=== PATIENT | female | born 1980 | race Caucasian/White ===

== ENCOUNTER 2017-02-10 15:19 | Inpatient (IN) | payer OTHER ==
[~2017-02-10] VITALS: Ht 170.2 cm; Wt 55.3 kg
--- NOTE | 2017-02-10 16:20 | NUR ---
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 Night nurse to follow up. Pt to be on Room Restriction when she comes back on the unit and to be monitored closely. Addendum: 02/10/17 at 1940 by CLAUDIO JAIN RN CORRECTION OF TIME, TIME OF OCCURRENCE WAS 1819.
[2017-02-10] MEDS ORDERED: diphenhydrAMINE 50 MG CAPSULE PO PRN (16:30)
[2017-02-10] MEDS ORDERED: ACETAMINOPHEN 325 MG TABLET PO PRN (16:30)
[2017-02-10] MEDS ORDERED: MIRALAX 17 GM POWD.PACK PO PRN (16:30)
[2017-02-10] MEDS ORDERED: ONDANSETRON ODT 4 MG TAB.RAPDIS SL PRN (16:30)
[2017-02-10] MEDS ORDERED: ONDANSETRON 4 MG/2 ML VIAL IM PRN (16:30)
[2017-02-10] MEDS ORDERED: MAG HYDROX/AL HYDROX/SIMETH 30 ML LIQUID UDC PO PRN (16:30)
[2017-02-10] MEDS ORDERED: THIAMINE HCL 200 MG/2 ML VIAL IM ONE (16:30)
[2017-02-10] MEDS ORDERED: IBUPROFEN 400 MG TABLET PO PRN (16:30)
[2017-02-10] MEDS ORDERED: LORAZEPAM 2 MG/1 ML VIAL IM PRN (16:30)
[2017-02-10] MEDS ORDERED: CLONIDINE HCL 0.1 MG TABLET PO PRN (16:30)
[2017-02-10] MEDS ORDERED: LOPERAMIDE HCL 2 MG CAPSULE PO PRN ×2 (16:30)
--- NOTE | 2017-02-10 16:30 | NUR ---
INTAKE ASSESSMENT Client is sitting in chair, she presents with anxious mood, she is running her hands up and down on her arms, hand-wringing she states "I am very anxious, I need some alcohol." VS T97.8, P 92, RR 16, BP 136/86, spO2 @ 95% on RA, pain 0/10. Client appears intoxicated and is a poor historian, she stated she is a binge drinker and that she has been sober for 3 and a half years, she also said " The first time I had a drink was two and a half years ago." Client is inconsistent with substance use. Her closest friend stated "Last time she had a drink was 2 hrs ago, she had three shots of vodka at the restaurant." Client reports NKA, NKFA and regular diet. Client reports PMH of anxiety, she denies any withdrawal-induced seizure. She does not have a PCP, Psychiatrist Coni Gifford. Dr. Miller was contacted by RN on client current state, and ask if client should be transfer to ER until stable. Per order, client was transported to 3rd floor via . and continue to monitor. Client was educated on VS, blood drawn, urine drug screen and narcotic medication protocol.
[2017-02-10 16:48] LABS: *URINE HCG, QUAL NEGATIVE (NEGATIVE)
[2017-02-10 16:56] LABS: *AMPHETAMINE, URINE NEGATIVE (NEGATIVE); *BARBITURATE, URINE NEGATIVE (NEGATIVE); *CANNABINOID, URINE NEGATIVE (NEGATIVE); *COCCAINE, URINE NEGATIVE (NEGATIVE); *OPIATE, URINE NEGATIVE (NEGATIVE); *PHENCYCLIDINE SCREEN,URINE NEGATIVE (NEGATIVE)
[2017-02-10] MEDS ORDERED: IBUP-1610 PO (16:58)
[2017-02-10] MEDS ORDERED: ALPR0.255 PO (16:58)
[2017-02-10] MEDS ORDERED: TEMA7.5C PO (16:58)
[2017-02-10] MEDS ORDERED: VALE500C PO (16:58)
--- NOTE | 2017-02-10 17:00 | NUR ---
Client admitted via to room # 301-A, after [facility] by staff INDUSTRIAL ENGINEERING ANALYST. Client's skin is clean, warm and intact. She lives alone in an apartment in [place]. She is a Travel special education paraeducator. Client states ""I have a lot to live for." as the reason for her admission to [facility], she reports taking Xanax 0.25mg twice as needed for the past 3 weeks, last time she used this am, but she can not recall amount. She reports not having any alcoholic drink for the past two weeks, but smell of alcohol can be detected. Client provided urine, she is positive for Benzodiazepine. She reports LMP three weeks ago. Client is in bed, side rails x 2 up/padded. Call light within reach. She states I just want to relax for a little bit before you keep asking questions. Client got up with an steady gait and went to use the bathroom, she came back to bed, closed her eyes and did not answer any more questions.
[2017-02-10 18:04] LABS: BASOPHILS % (AUTO) 0.6 % (0.0-2.0); EOSINOPHILS # (AUTO) 0.2 K/uL (0.0-0.7); EOSINOPHILS % (AUTO) 3.2 % (0.0-7.0); HEMATOCRIT 41.2 % (37-47); HEMOGLOBIN 13.5 G/DL (12.0-16.0); LYMPHOCYTES # (AUTO) 1.6 K/UL (0.8-4.8); MEAN CORPUSCULAR HEMOGLOBIN 28.7 UUG (27.0-31.0); MEAN CORPUSCULAR HGB CONC 33 g/dL (32.0-37.0); MEAN CORPUSCULAR VOLUME 87.5 FL (81.0-99.0); MONOCYTES # (AUTO) 0.3 K/UL (0.1-1.30); NEUTROPHILS # (AUTO) 2.7 K/UL (1.8-8.9); NEUTROPHILS % (AUTO) 56.2 % (38.5-71.5); PLATELET COUNT (AUTO) 331 K/UL (150-450); RED BLOOD CELL COUNT(AUTO) 4.71 MIL/UL (4.2-5.4); WHITE BLOOD COUNT (AUTO) 4.8 K/UL (4.0-11.2)
--- NOTE | 2017-02-10 18:10 | NUR ---
Client is on B1 injection, stating "You have to give me Ativan first, if you want me to take any medication. ANDRE 4. Charge nurse notified .
[2017-02-10 18:14] LABS: BILIRUBIN,TOTAL 0.3 mg/dL (0.2-1.0); CREATININE 0.8 mg/dL (0.6-1.3); MAGNESIUM 1.9 mg/dL (1.8-2.4); POTASSIUM 3.8 mmol/L (3.5-5.1); TOTAL PROTEIN, SERUM 7.5 g/dL (6.4-8.2)
[2017-02-10 21:00] VITALS: BP 126/77
[2017-02-10] MEDS ORDERED: LORAZEPAM 1 MG TABLET PO PRN ×2 (21:00)
[2017-02-10] MEDS ORDERED: NICOTINE POLACRILEX 4 MG GUM-PK OF TEN BC PRN (21:00)
[2017-02-10] MEDS: NICOTINE 14 MG/24HR PATCH TD SCH (21:00)
--- NOTE | 2017-02-10 21:45 | NUR ---
ADMISSION Pt is a 37 yo female who arrived on the [facility] unit via wheelchair at 2044 on 02/10/17. Pt was transferred from the [facility] ED to the [facility] for medically supervised detox. She is A&O x4 and ambulatory. Her gait is steady when she arrived on the unit. Pt appears mildly intoxicated and answers questions appropriately. 1:[address] for safety and pt is on room restriction per MD orders. Pt reports NKA, is full code status, and on a regular diet. Vital signs are B/P 126/77, HR 72, RR 16, O2 sat 100%. She c/o a mild headache. Pt is 5'7" and weighs 122lb. She reports a PMH of 1 withdrawal related seizure over three years ago and anxiety. Lung sounds clear, PERRLA, brisk capillary refill, bowel sounds present, skin is intact. She reports last BM was today. LMP 01/31/17. History of Use 1) ETOH/Vodka 18oz per day for the past 6 days. Last drink was 10oz on 02/10/17 at 1400. She has used ETOH for 16 years. Pt reports 3 years of sobriety prior to relapsing 6 days ago. 2) Alprazolam 0.5mg per day for the past 3 weeks. Last used 0.5mg on 02/10/17 at 1400. 3) Tenazepam 7.5mg QHSPRN. Last used 7.5mg on 02/10/17 at 1400. Treatment History 1) [facility] in 2014 for 60 days. Pt has some inconsistencies when providing her history. She is an occasional smoker. She decided to come to treatment today because "I don't want to drink". Symptoms when she doesn't use include "anxiety, heart palpitations, night sweats, can't relax, mind races, become immobile, anger, sweating". CIWA on admission is 12. She does not have a primary care physician at home. Admission orders received. Pt educated regarding use of the call light and all questions answered. Fall and seizure precautions in place. Bed is down with call light in reach.
--- NOTE | 2017-02-10 21:48 | NUR ---
PRN Ativan, Motrin, and Benadryl Pt c/o anxiety, feeling of a panic attack developing, headache, and inability to sleep. She is observed to have hand tremors. PRN Ativan, Motrin, and Benadryl administered.
--- NOTE | 2017-02-10 22:48 | NUR ---
PRN Ativan, Motrin, and Benadryl reassessment PRN Ativan, Motrin, and Benadryl effective. Pt is lying in bed resting and about to fall asleep. Respirations even and unlabored. 1:[address] for safety.
[2017-02-11] VITALS: BP 108/65
--- NOTE | 2017-02-11 | NUR ---
0000 CIWA deferred CIWA ordered Q4HWA. Pt is lying in bed resting with eyes closed. Vital signs obtained. Safety measures in place.
[2017-02-11 04:00] VITALS: BP 129/80
--- NOTE | 2017-02-11 04:00 | NUR ---
0400 CIWA deferred CIWA ordered Q4HWA. Pt is lying in bed resting with eyes closed. Vital signs obtained. Safety measures in place.
--- NOTE | 2017-02-11 07:17 | NUR ---
END OF SHIFT Report provided to day shift nurse. Pt is lying in bed resting. She is a 37 yo female admitted to [facility] 02/10/17 at 5 for ETOH and BZD dependence. She is A&O and ambulatory. 1:[address]ER [address] for safety r/t to reported syncopal episode yesterday while downstairs in the hospital. Pt is also on room restriction per MD orders. PRN Ativan, Motrin, and Benadryl administered. Medications effective. Last CIWA was 3. She drank 1500mL and slept for 8 hours.
--- NOTE | 2017-02-11 07:31 | NUR ---
START OF SHIFT NOTE patient is laying in bed with respirations even and unlabored. Patient continues to be on room restrictions as well as a 1:1. Patient slept 8 hours per night nurse with last CIWA 3. PRN meds given last night were: Ativan, Motrin, and Benadryl with effectiveness. All safety measures in place, bed padded, call alarm within reach, and bed in the lowest position. All needs have been met, will continue to monitor patient.
[2017-02-11] MEDS ORDERED: TUBERCULIN,PURIF.PROT.DERIV. 5 TU/0.1 ML TEST ID ONE (09:00)
[2017-02-11] MEDS ORDERED: FOLIC ACID 1 MG TABLET PO SCH (09:00)
[2017-02-11] MEDS ORDERED: MULTIVITAMINS,THERAPEUTIC TABLET PO SCH (09:00)
[2017-02-11] MEDS: NICOTINE 14 MG/24HR PATCH TD SCH (09:00)
[2017-02-11] MEDS ORDERED: THIAMINE HCL 100 MG TABLET PO SCH (09:00)
[2017-02-11 09:23] VITALS: BP 122/75
[2017-02-11] MEDS ORDERED: TRAZODONE 50 MG TABLET PO PRN (10:45)
[2017-02-11] MEDS ORDERED: LORAZEPAM 1 MG TABLET PO SCH (12:00)
[2017-02-11 12:32] VITALS: BP 119/72
[2017-02-11 17:20] VITALS: BP 106/61
--- NOTE | 2017-02-11 17:28 | NUR ---
AMA NOTE Patient left AMA, patient refused to comply with treatment. patient educated about the risks and consequences of leaving AMA, patient verbalized understanding but was adamant about leaving. Multiple staff members including doctors, patient advocates and nurses attempted to reason with the patient without any success. Vital signs are within normal limits, skin intact, and patient denies any suicidal or homicidal ideations. Patient's psychiatrist and MD were notified and aware. Patient was given a list of community resources, AMA forms explained and signed. All belongings returned to patient. Patient left the facility AMA on 02/11/17 at 1728.
[2017-02-12 08:06] LABS: HEPATITIS B SURFACE AG Negative (Negative)
[2017-02-12] MEDS ORDERED: LORAZEPAM 1 MG TABLET PO SCH (09:00)
[2017-02-13] MEDS ORDERED: LORAZEPAM 1 MG TABLET PO SCH (09:00)
[2017-02-14] MEDS ORDERED: LORAZEPAM 1 MG TABLET PO SCH (21:00)
== END 2017-02-11 17:28 | disposition left against medical advice (07) | DRG 894 ==
LOC: SRC 15:19
PROVIDERS: ADMIT Internal Medicine; ATTEND Internal Medicine
PROC: HZ2ZZZZ Detoxification Services for Substance Abuse Treatment (ICD-10-PCS; principal; 2017-02-10)
DX: F10.230 Alcohol dependence with withdrawal, uncomplicated (principal); K85.20 Alcohol induced acute pancreatitis without necrosis or infection; F13.120 Sedative, hypnotic or anxiolytic abuse with intoxication, uncomplicated; Y90.9 Presence of alcohol in blood, level not specified; F41.9 Anxiety disorder, unspecified; F17.210 Nicotine dependence, cigarettes, uncomplicated; Z91.410 Personal history of adult physical and sexual abuse
CPT/HCPCS: 36415; 80307; 80346; 83690; 83735; 84703; 85025; 86592; 86705; 86803; 87340; 87806; A4663; G0480; Q0163

== ENCOUNTER 2017-02-10 18:27 | Emergency (ER) | payer OTHER ==
[~2017-02-10] VITALS: Ht 157.5 cm; Wt 49.9 kg
[~2017-02-10 18:27] MED LIST: ALPR0.255 PO; IBUP-1610 PO; TEMA7.5C PO; VALE500C PO
[2017-02-10] MEDS ORDERED: IV NORMAL SALINE 1000 ML BAG IV ONE (18:45)
[2017-02-10] MEDS ORDERED: ONDANSETRON 4 MG/2 ML VIAL IV ONE (18:45)
[2017-02-10] MEDS ORDERED: LORAZEPAM 2 MG/1 ML VIAL IV ONE (18:45)
--- NOTE | 2017-02-10 18:47 | NUR ---
Pt was admitted at [facility], just finished smoking break and had a syncopal episode. Pt was brought to ER and put in bed 4A, monitor, IV 20g left FA, blood drawn and given to lab. While in bed, pt reportedly had a tonic sz. aware.
[2017-02-10] MEDS ORDERED: ONDANSETRON 4 MG/2 ML VIAL ONE (18:52)
[2017-02-10] MEDS ORDERED: LORAZEPAM 2 MG/1 ML VIAL ONE (18:52)
[2017-02-10 18:54] LABS: BASOPHILS # (AUTO) 0.1 K/uL (0.0-8.0); EOSINOPHILS # (AUTO) 0.2 K/uL (0.0-0.7); EOSINOPHILS % (AUTO) 2.8 % (0.0-7.0); HEMATOCRIT 39.5 % (37-47); HEMOGLOBIN 13.2 G/DL (12.0-16.0); LYMPHOCYTES # (AUTO) 2.1 K/UL (0.8-4.8); LYMPHOCYTES % (AUTO) 36.8 % (20.5-51.5); MEAN CORPUSCULAR HEMOGLOBIN 29.3 UUG (27.0-31.0); MEAN CORPUSCULAR HGB CONC 34 g/dL (32.0-37.0); MEAN CORPUSCULAR VOLUME 87.5 FL (81.0-99.0); MONOCYTES # (AUTO) 0.4 K/UL (0.1-1.30); MONOCYTES % (AUTO) 7.9 % (0.0-11.0); NEUTROPHILS # (AUTO) 2.8 K/UL (1.8-8.9); NEUTROPHILS % (AUTO) 51.5 % (38.5-71.5); PLATELET COUNT (AUTO) 360 K/UL (150-450); RED BLOOD CELL COUNT(AUTO) 4.51 MIL/UL (4.2-5.4); WHITE BLOOD COUNT (AUTO) 5.6 K/UL (4.0-11.2)
[2017-02-10 19:02] LABS: CREATININE 0.8 mg/dL (0.6-1.3)
[2017-02-10 19:07] LABS: BILIRUBIN,DIRECT 0.1 mg/dL (0.0-0.2); BILIRUBIN,TOTAL 0.3 mg/dL (0.2-1.0); TOTAL PROTEIN, SERUM 7.2 g/dL (6.4-8.2)
--- NOTE | 2017-02-10 19:40 | NUR ---
[facility]. Written and verbal after care instructions given. Patient verbalizes understanding of instructions. SERENITY STAFF AT BEDSIDE FOR WOODS MANAGER.
--- NOTE | 2017-02-10 20:04 | NUR ---
RECEIVED CALL FROM SERENITY CHARGE NURSE, PATIENT WILL BE TRANSFERRED BACK TO HER ROOM AFTER CLEANED BY EVS.
--- NOTE | 2017-02-10 20:47 | NUR ---
PATIENT PICKED UP BY SERENITY STAFF AT THIS TIME. LEFT VIA WC IN STABLE CONDITION.
[2017-02-10 20:50] VITALS: BP 106/47
== END 2017-02-10 20:50 | disposition other institution (70) ==
LOC: ER 18:30
DX: F10.129 Alcohol abuse with intoxication, unspecified (principal)
CPT/HCPCS: 36415; 83690; 85025; A4663; G0480; J2060; J2405; J7030